=== PATIENT | female | born 1980 | race African-American/Black ===

== ENCOUNTER 2018-04-18 12:00 | Inpatient (IN) | payer BC, MEDICAID, OTHER ==
[~2018-04-18] VITALS: Ht 170.2 cm; Wt 143.3 kg
[2018-04-18] MEDS ORDERED: QUET100T PO (12:17)
[2018-04-18] MEDS ORDERED: BUPR-93 PO (12:17)
[2018-04-18 12:58] LABS: AMPHET/METH SCREEN,URINE NEGATIVE (NEGATIVE); BARBITURATE SCREEN, URINE NEGATIVE (NEGATIVE); BENZODIAZEPINES SCREEN,URINE NEGATIVE (NEGATIVE); CANNABINOID SCREEN,URINE NEGATIVE (NEGATIVE); COCAINE SCREEN,URINE NEGATIVE (NEGATIVE); METHADONE SCREEN, URINE NEGATIVE (NEGATIVE); OPIATE SCREEN,URINE NEGATIVE (NEGATIVE); PHENCYCLIDINE SCREEN,URINE NEGATIVE (NEGATIVE)
[2018-04-18 13:07] LABS: BASOPHILS % (AUTO) 0.8 % (0.0-2.0); EOSINOPHILS % (AUTO) 8.6 % (1.0-6.0); HEMATOCRIT 32.9 % (36-46); HEMOGLOBIN 10.6 g/dL (12.0-16.0); LYMPHOCYTES # (AUTO) 1.6 K/uL (1.0-4.8); MEAN CORPUSCULAR HEMOGLOBIN 23.6 pg (26.0-34.0); MEAN CORPUSCULAR HGB CONC 32.3 G/dL (31.0-37.0); MEAN CORPUSCULAR VOLUME 73 fL (80-100); MONOCYTES # (AUTO) 0.5 K/uL (0.1-1.0); NEUTROPHILS # (AUTO) 3.3 K/uL (1.8-7.7); NEUTROPHILS % (AUTO) 55.6 % (40.0-70.0); PLATELET COUNT (AUTO) 408 K/uL (150-450); RED BLOOD CELL COUNT(AUTO) 4.51 MIL/uL (4.00-5.20); RED CELL DISTRIBUTION WIDTH 17.7 % (11.5-14.5)
[2018-04-18 13:15] LABS: ANION GAP 6 mmol/L (8-16); CARBON DIOXIDE 28 mmol/L (22-29); CHLORIDE 104 mmol/L (98-107); CREATININE 0.86 mg/dL (0.60-1.30); GLOMERULAR FILTR. RATE CALC > 60 mL/min (>60); GLUCOSE,RANDOM 94 mg/dL (70-110); POTASSIUM 3.4 mmol/L (3.5-5.1); SODIUM SERUM 138 mmol/L (136-145); UREA NITROGEN, BLOOD 11 mg/dL (7-18)
[2018-04-18 13:27] LABS: ACETAMINOPHEN < 2 mcg/mL (10-30); ALANINE AMINOTRANSFERASE 25 U/L (12-78); ALKALINE PHOSPHATASE 74 U/L (46-116); ASPARTATE AMINOTRANSFERASE 17 U/L (15-37); BILIRUBIN,TOTAL 0.4 mg/dL (0.1-1.0); HCG,QUANTITATIVE 2 mIU/mL (0-6); TOTAL PROTEIN, SERUM 6.8 g/dL (6.4-8.2)
[2018-04-18] MEDS ORDERED: LORazepam 2 MG/ML VIAL ONE (13:59)
[2018-04-18] MEDS ORDERED: DiphenhydrAMINE HCL 50 MG/ML VIAL ONE (13:59)
[2018-04-18] MEDS ORDERED: LORazepam 2 MG TABLET PO PRN (14:00)
[2018-04-18] MEDS ORDERED: HALOPERIDOL 5 MG TABLET PO PRN (14:00)
[2018-04-18] MEDS ORDERED: ZOLPIDEM TARTRATE 10 MG TABLET PO PRN (14:00)
[2018-04-18] MEDS ORDERED: HALOPERIDOL LACTATE 5 MG/ML VIAL ONE (14:00)
[2018-04-18] MEDS ORDERED: ACETAMINOPHEN 325 MG TABLET PO PRN ×2 (14:15→21:15)
[2018-04-18] MEDS ORDERED: IBUPROFEN 400 MG TABLET PO PRN ×2 (14:15→21:15)
[2018-04-18] MEDS ORDERED: LORazepam 2 MG/ML VIAL IM ONE (16:45)
[2018-04-18] MEDS ORDERED: DiphenhydrAMINE HCL 50 MG/ML VIAL IM ONE (16:45)
[2018-04-18] MEDS ORDERED: HALOPERIDOL LACTATE 5 MG/ML VIAL IM ONE (16:45)
[2018-04-18] MEDS ORDERED: ALBUTEROL SULFATE HFA 90 MCG/PUFF 8 GM INHALER IH PRN (21:15)
[2018-04-18] MEDS ORDERED: DOCUSATE SODIUM 100 MG CAPSULE PO PRN (21:15)
[2018-04-18] MEDS ORDERED: MAGNESIUM HYDROXIDE SUSPENSION 30 ML UDCUP PO PRN (21:15)
[2018-04-18] MEDS ORDERED: MAG HYDROX/AL HYDROX/SIMETH ES 30 ML SUSPENSION UDCUP PO PRN (21:15)
[2018-04-18] MEDS ORDERED: NICOTINE 14 MG/24 HOUR PATCH TD PRN (21:15)
[2018-04-18] MEDS ORDERED: GuaiFENesin/D-METHORPHAN [SUGAR-FREE] 200-20MG/10 ML SYRUP UDCUP PO PRN (21:15)
[2018-04-18] MEDS ORDERED: PETROLATUM,WHITE 71 GM JELLY TP PRN (21:15)
[2018-04-18] MEDS ORDERED: LOPERAMIDE HCL 2 MG CAPSULE PO PRN (21:15)
[2018-04-18] MEDS ORDERED: ONDANSETRON HCL 4 MG TABLET PO PRN (21:15)
[2018-04-18] MEDS ORDERED: CloNIDine HCL 0.1 MG TABLET PO PRN (21:15)
[2018-04-19 08:22] VITALS: BP 144/100
[2018-04-19] MEDS: BuPROPion HCL XL 150 MG ER TABLET PO SCH (15:05)
[2018-04-19] MEDS: QUEtiapine FUMARATE 100 MG TABLET PO SCH (15:05)
[2018-04-19 20:14] VITALS: BP 138/89
[2018-04-20 08:05] VITALS: BP 133/87
[2018-04-20] MEDS: QUEtiapine FUMARATE 100 MG TABLET PO SCH (08:32)
[2018-04-20] MEDS: BuPROPion HCL XL 150 MG ER TABLET PO SCH (08:32)
[2018-04-20 16:50] VITALS: BP 140/80
[2018-04-21] MEDS: QUEtiapine FUMARATE 100 MG TABLET PO SCH (07:57)
[2018-04-21] MEDS: BuPROPion HCL XL 150 MG ER TABLET PO SCH (07:57)
[2018-04-21 10:34] VITALS: BP 140/83
== END 2018-04-21 14:52 | disposition home or self-care (01) | DRG 753 ==
LOC: EMS 12:00 → 3EI 19:20
PROVIDERS: ADMIT Psychiatry & Neurology Child & Adolescent Psychiatry; ATTEND Psychiatry & Neurology Child & Adolescent Psychiatry
DX: F31.9 Bipolar disorder, unspecified (principal); Z68.42 Body mass index [BMI] 45.0-49.9, adult; D64.9 Anemia, unspecified; E87.6 Hypokalemia; G47.00 Insomnia, unspecified; J31.0 Chronic rhinitis; J45.909 Unspecified asthma, uncomplicated; E66.9 Obesity, unspecified; F10.10 Alcohol abuse, uncomplicated; Z88.8 Allergy status to other drugs, medicaments and biological substances; Z79.899 Other long term (current) drug therapy
CPT/HCPCS: 83735; 93005; 96372; G0480; G0481; J1200; J1630; J2060

== ENCOUNTER 2018-06-06 12:18 | Inpatient (IN) | payer MEDICARE, MEDICAID ==
[~2018-06-06] VITALS: Ht 165.1 cm; Wt 136.0 kg
[~2018-06-06 12:18] MED LIST: BUPR-93 PO; QUET100T PO
[2018-06-06] MEDS ORDERED: HALOPERIDOL 5 MG TABLET PO ONE (12:30)
[2018-06-06 13:15] LABS: BASOPHILS % (AUTO) 0.5 % (0.0-2.0); EOSINOPHILS % (AUTO) 5.7 % (1.0-6.0); HEMATOCRIT 37.5 % (36-46); HEMOGLOBIN 12.1 g/dL (12.0-16.0); LYMPHOCYTES # (AUTO) 1.5 K/uL (1.0-4.8); LYMPHOCYTES % (AUTO) 23.6 % (22.0-44.0); MEAN CORPUSCULAR HEMOGLOBIN 23.9 pg (26.0-34.0); MEAN CORPUSCULAR HGB CONC 32.3 G/dL (31.0-37.0); MEAN CORPUSCULAR VOLUME 74 fL (80-100); MONOCYTES # (AUTO) 0.6 K/uL (0.1-1.0); MONOCYTES % (AUTO) 8.7 % (2.0-9.0); NEUTROPHILS # (AUTO) 3.9 K/uL (1.8-7.7); NEUTROPHILS % (AUTO) 61.5 % (40.0-70.0); PLATELET COUNT (AUTO) 469 K/uL (150-450); RED BLOOD CELL COUNT(AUTO) 5.07 MIL/uL (4.00-5.20); RED CELL DISTRIBUTION WIDTH 17.9 % (11.5-14.5)
[2018-06-06 13:23] LABS: ANION GAP 13 mmol/L (8-16); CALCIUM, TOTAL 9.6 mg/dL (8.8-10.5); CARBON DIOXIDE 24 mmol/L (22-29); CHLORIDE 105 mmol/L (98-107); GLOMERULAR FILTR. RATE CALC > 60 mL/min (>60); GLUCOSE,RANDOM 100 mg/dL (70-110); POTASSIUM 3.6 mmol/L (3.5-5.1); SODIUM SERUM 142 mmol/L (136-145); UREA NITROGEN, BLOOD 13 mg/dL (7-18)
[2018-06-06 13:29] LABS: ALANINE AMINOTRANSFERASE 43 U/L (12-78); ALBUMIN 3.4 g/dL (3.4-5.0); ALKALINE PHOSPHATASE 85 U/L (46-116); ASPARTATE AMINOTRANSFERASE 20 U/L (15-37); BILIRUBIN,TOTAL 0.5 mg/dL (0.1-1.0); TOTAL PROTEIN, SERUM 7.7 g/dL (6.4-8.2)
[2018-06-06] MEDS ORDERED: LORazepam 2 MG/ML VIAL IM ONE (14:00)
[2018-06-06] MEDS ORDERED: DiphenhydrAMINE HCL 50 MG/ML VIAL IM ONE (14:00)
[2018-06-06] MEDS ORDERED: MAG HYDROX/AL HYDROX/SIMETH ES 30 ML SUSPENSION UDCUP PO PRN (17:15)
[2018-06-06] MEDS ORDERED: ONDANSETRON HCL 4 MG TABLET PO PRN (17:15)
[2018-06-06] MEDS ORDERED: IBUPROFEN 400 MG TABLET PO PRN (17:15)
[2018-06-06] MEDS ORDERED: LOPERAMIDE HCL 2 MG CAPSULE PO PRN (17:15)
[2018-06-06] MEDS ORDERED: GuaiFENesin/D-METHORPHAN [SUGAR-FREE] 200-20MG/10 ML SYRUP UDCUP PO PRN (17:15)
[2018-06-06] MEDS ORDERED: MAGNESIUM HYDROXIDE SUSPENSION 30 ML UDCUP PO PRN (17:15)
[2018-06-06] MEDS ORDERED: CloNIDine HCL 0.1 MG TABLET PO PRN (17:15)
[2018-06-06] MEDS ORDERED: DOCUSATE SODIUM 100 MG CAPSULE PO PRN (17:15)
[2018-06-06] MEDS ORDERED: ACETAMINOPHEN 325 MG TABLET PO PRN (17:15)
[2018-06-06] MEDS ORDERED: ALBUTEROL SULFATE HFA 90 MCG/PUFF 8 GM INHALER IH PRN (17:15)
[2018-06-06] MEDS ORDERED: PETROLATUM,WHITE 28 GM JELLY TP PRN (17:15)
[2018-06-06] MEDS: BuPROPion HCL XL 150 MG ER TABLET PO SCH (17:35)
[2018-06-06 17:39] VITALS: BP 131/83
[2018-06-06] MEDS ORDERED: PNEUMOCOCCAL VACCINE POLYVALENT 0.5 ML VIAL [PPSV23] IM ONE (18:00)
[2018-06-06] MEDS ORDERED: BuPROPion HCL XL 150 MG ER TABLET PO SCH (21:00)
[2018-06-06] MEDS: ZOLPIDEM TARTRATE 10 MG TABLET PO PRN (21:08)
[2018-06-07 06:11] LABS: BASOPHILS % (AUTO) 0.5 % (0.0-2.0); EOSINOPHILS % (AUTO) 7.5 % (1.0-6.0); HEMATOCRIT 35.2 % (36-46); HEMOGLOBIN 11.6 g/dL (12.0-16.0); LYMPHOCYTES # (AUTO) 1.7 K/uL (1.0-4.8); MEAN CORPUSCULAR HEMOGLOBIN 23.9 pg (26.0-34.0); MEAN CORPUSCULAR HGB CONC 32.9 G/dL (31.0-37.0); MEAN CORPUSCULAR VOLUME 73 fL (80-100); MONOCYTES # (AUTO) 0.5 K/uL (0.1-1.0); MONOCYTES % (AUTO) 8.5 % (2.0-9.0); NEUTROPHILS # (AUTO) 2.9 K/uL (1.8-7.7); NEUTROPHILS % (AUTO) 52.5 % (40.0-70.0); PLATELET COUNT (AUTO) 422 K/uL (150-450); RED BLOOD CELL COUNT(AUTO) 4.83 MIL/uL (4.00-5.20); RED CELL DISTRIBUTION WIDTH 18.3 % (11.5-14.5)
[2018-06-07 06:27] LABS: ALANINE AMINOTRANSFERASE 37 U/L (12-78); ALKALINE PHOSPHATASE 76 U/L (46-116); ANION GAP 11 mmol/L (8-16); ASPARTATE AMINOTRANSFERASE 17 U/L (15-37); BILIRUBIN,TOTAL 0.5 mg/dL (0.1-1.0); CALCIUM, TOTAL 9.1 mg/dL (8.8-10.5); CARBON DIOXIDE 25 mmol/L (22-29); CHLORIDE 105 mmol/L (98-107); CHOL/HDL RATIO 4.2 (3.9-5.7); CHOLESTEROL 158 mg/dL (131-200); CREATININE 1.09 mg/dL (0.60-1.30); GLOMERULAR FILTR. RATE CALC > 60 mL/min (>60); GLUCOSE,RANDOM 93 mg/dL (70-110); HDL CHOLESTEROL 38 mg/dL (40-60); LDL CHOL (CALC.) 108 mg/dL (0-130); POTASSIUM 3.6 mmol/L (3.5-5.1); SODIUM SERUM 141 mmol/L (136-145); THYROID STIMULATING HORMONE 2.01 uIU/mL (0.36-3.74); TOTAL PROTEIN, SERUM 6.8 g/dL (6.4-8.2); TRIGLYCERIDES 59 mg/dL (15-150); UREA NITROGEN, BLOOD 14 mg/dL (7-18)
[2018-06-07 06:32] LABS: HEMOGLOBIN A1C 6.1 % (4.5-6.2)
[2018-06-07] MEDS: BuPROPion HCL XL 150 MG ER TABLET PO SCH (08:06)
[2018-06-07] MEDS: LORazepam 2 MG TABLET PO PRN (08:17)
[2018-06-07] MEDS: HALOPERIDOL 5 MG TABLET PO PRN (08:18)
[2018-06-07] MEDS ORDERED: QUEtiapine FUMARATE 100 MG TABLET PO SCH (09:00)
[2018-06-07 16:36] VITALS: BP 115/83
[2018-06-07] MEDS: ZOLPIDEM TARTRATE 10 MG TABLET PO PRN (22:48)
[2018-06-08] MEDS: LORazepam 2 MG TABLET PO PRN ×2 (04:18→14:06)
[2018-06-08] MEDS: BuPROPion HCL XL 150 MG ER TABLET PO SCH (08:30)
[2018-06-08 13:50] VITALS: BP 132/93
[2018-06-08 17:57] VITALS: BP 128/89
[2018-06-08] MEDS: HALOPERIDOL 5 MG TABLET PO PRN (18:06)
[2018-06-08] MEDS ORDERED: QUEtiapine FUMARATE 100 MG TABLET PO SCH (21:00)
[2018-06-09] VITALS: BP 129/88
[2018-06-09] MEDS: ZOLPIDEM TARTRATE 10 MG TABLET PO PRN (00:01)
[2018-06-09 08:00] VITALS: BP 138/71
[2018-06-09] MEDS: BuPROPion HCL XL 150 MG ER TABLET PO SCH (08:23)
[2018-06-09] MEDS: LORazepam 2 MG TABLET PO PRN (10:08)
[2018-06-09] MEDS: HALOPERIDOL 5 MG TABLET PO PRN (10:08)
== END 2018-06-09 14:10 | disposition home or self-care (01) | DRG 885 ==
LOC: EMS 12:18 → 3EI 15:49
PROVIDERS: ADMIT Psychiatry & Neurology Psychiatry; ATTEND Psychiatry & Neurology Psychiatry
DX: F31.9 Bipolar disorder, unspecified (principal); R45.851 Suicidal ideations; Z68.42 Body mass index [BMI] 45.0-49.9, adult; F41.9 Anxiety disorder, unspecified; F42.9 Obsessive-compulsive disorder, unspecified; F19.10 Other psychoactive substance abuse, uncomplicated; J45.909 Unspecified asthma, uncomplicated; E66.01 Morbid (severe) obesity due to excess calories; D64.9 Anemia, unspecified; Z88.8 Allergy status to other drugs, medicaments and biological substances; Z79.899 Other long term (current) drug therapy; Z71.51 Drug abuse counseling and surveillance of drug abuser
CPT/HCPCS: 83036; 84443; 96372; G0480; J1200; J2060

== ENCOUNTER 2018-07-10 20:45 | Emergency (ER) | payer MEDICARE, OTHER ==
[~2018-07-10] VITALS: Ht 165.1 cm; Wt 136.4 kg
[2018-07-10] MEDS ORDERED: HALOPERIDOL LACTATE 5 MG/ML VIAL IM ONE (21:15)
[2018-07-10] MEDS ORDERED: DiphenhydrAMINE HCL 50 MG/ML VIAL IM ONE (21:15)
[2018-07-10] MEDS ORDERED: LORazepam 2 MG/ML VIAL IM ONE (21:15)
[2018-07-10] MEDS ORDERED: LITH600 PO (21:31)
[2018-07-10] MEDS ORDERED: DIPH50CA35 PO (21:31)
[2018-07-10] MEDS ORDERED: OMEP20 PO (21:31)
[2018-07-10] MEDS ORDERED: DOCU250C91 PO (21:31)
[2018-07-11 00:56] VITALS: BP 136/81
== END 2018-07-11 01:57 | disposition home or self-care (01) ==
LOC: EMS 20:48
DX: F41.9 Anxiety disorder, unspecified (principal); F31.9 Bipolar disorder, unspecified; F25.9 Schizoaffective disorder, unspecified; Z88.8 Allergy status to other drugs, medicaments and biological substances
CPT/HCPCS: 96372; 99285; J1200; J1630; J2060

== ENCOUNTER 2018-07-15 16:08 | Inpatient (IN) | payer MEDICARE, MEDICAID ==
[~2018-07-15] VITALS: Ht 165.1 cm; Wt 139.7 kg
[~2018-07-15 16:08] MED LIST changes: +DIPH50CA35 PO; +DOCU250C91 PO; +LITH600 PO; +OMEP20 PO
[2018-07-15] MEDS ORDERED: ZOLPIDEM TARTRATE 10 MG TABLET PO PRN (16:30)
[2018-07-15] MEDS ORDERED: HALOPERIDOL 5 MG TABLET ONE (17:15)
[2018-07-15] MEDS ORDERED: LORazepam 2 MG TABLET ONE (17:15)
[2018-07-15 17:20] VITALS: BP 126/95
[2018-07-15] MEDS ORDERED: PNEUMOCOCCAL VACCINE POLYVALENT 0.5 ML VIAL [PPSV23] IM ONE (17:30)
[2018-07-15] MEDS ORDERED: NICOTINE 14 MG/24 HOUR PATCH TD PRN (17:45)
[2018-07-15] MEDS ORDERED: PETROLATUM,WHITE 28 GM JELLY TP PRN (17:45)
[2018-07-15] MEDS ORDERED: DOCUSATE SODIUM 100 MG CAPSULE PO PRN (17:45)
[2018-07-15] MEDS ORDERED: MAGNESIUM HYDROXIDE SUSPENSION 30 ML UDCUP PO PRN (17:45)
[2018-07-15] MEDS ORDERED: MAG HYDROX/AL HYDROX/SIMETH ES 30 ML SUSPENSION UDCUP PO PRN (17:45)
[2018-07-15] MEDS ORDERED: ALBUTEROL SULFATE HFA 90 MCG/PUFF 8 GM INHALER IH PRN (17:45)
[2018-07-15] MEDS ORDERED: ONDANSETRON HCL 4 MG TABLET PO PRN (17:45)
[2018-07-15] MEDS ORDERED: LOPERAMIDE HCL 2 MG CAPSULE PO PRN (17:45)
[2018-07-15] MEDS ORDERED: CloNIDine HCL 0.1 MG TABLET PO PRN (17:45)
[2018-07-15] MEDS ORDERED: GuaiFENesin/D-METHORPHAN [SUGAR-FREE] 200-20MG/10 ML SYRUP UDCUP PO PRN (17:45)
[2018-07-15] MEDS ORDERED: ACETAMINOPHEN 325 MG TABLET PO PRN (17:45)
[2018-07-15] MEDS: HALOPERIDOL 5 MG TABLET PO PRN (18:42)
[2018-07-15] MEDS: LORazepam 2 MG TABLET PO PRN (18:42)
[2018-07-16] MEDS: LORazepam 2 MG TABLET PO PRN ×2 (04:42→17:22)
[2018-07-16 06:20] VITALS: BP 141/103
[2018-07-16 08:16] VITALS: BP 141/98
[2018-07-16 08:28] LABS: EOSINOPHILS % (AUTO) 11.8 % (1.0-6.0); HEMATOCRIT 35.4 % (36-46); HEMOGLOBIN 11.3 g/dL (12.0-16.0); LYMPHOCYTES # (AUTO) 1.8 K/uL (1.0-4.8); LYMPHOCYTES % (AUTO) 24.2 % (22.0-44.0); MEAN CORPUSCULAR HEMOGLOBIN 23.7 pg (26.0-34.0); MEAN CORPUSCULAR VOLUME 74 fL (80-100); MONOCYTES # (AUTO) 0.4 K/uL (0.1-1.0); MONOCYTES % (AUTO) 4.8 % (2.0-9.0); NEUTROPHILS # (AUTO) 4.3 K/uL (1.8-7.7); NEUTROPHILS % (AUTO) 58.2 % (40.0-70.0); PLATELET COUNT (AUTO) 575 K/uL (150-450); RED BLOOD CELL COUNT(AUTO) 4.77 MIL/uL (4.00-5.20); RED CELL DISTRIBUTION WIDTH 18.8 % (11.5-14.5)
[2018-07-16 08:42] LABS: HEMOGLOBIN A1C 5.6 % (4.5-6.2)
[2018-07-16 08:58] LABS: ALANINE AMINOTRANSFERASE 20 U/L (12-78); ALBUMIN 3.1 g/dL (3.4-5.0); ALKALINE PHOSPHATASE 81 U/L (46-116); ANION GAP 9 mmol/L (8-16); ASPARTATE AMINOTRANSFERASE 20 U/L (15-37); BILIRUBIN,TOTAL 0.2 mg/dL (0.1-1.0); CARBON DIOXIDE 25 mmol/L (22-29); CHLORIDE 106 mmol/L (98-107); CHOL/HDL RATIO 3.5 (3.9-5.7); CHOLESTEROL 157 mg/dL (131-200); CREATININE 0.96 mg/dL (0.60-1.30); FREE T4 (FREE THYROXINE) 0.75 ng/dL (0.76-1.46); GLOMERULAR FILTR. RATE CALC > 60 mL/min (>60); GLUCOSE,RANDOM 124 mg/dL (70-110); HCG,QUANTITATIVE 1 mIU/mL (0-6); HDL CHOLESTEROL 45 mg/dL (40-60); LDL CHOL (CALC.) 93 mg/dL (0-130); POTASSIUM 4.4 mmol/L (3.5-5.1); SODIUM SERUM 140 mmol/L (136-145); TOTAL PROTEIN, SERUM 7.5 g/dL (6.4-8.2); TRIGLYCERIDES 97 mg/dL (15-150); UREA NITROGEN, BLOOD 11 mg/dL (7-18)
[2018-07-16] MEDS ORDERED: QUEtiapine FUMARATE 100 MG TABLET PO SCH (11:15)
[2018-07-16] MEDS: BuPROPion HCL XL 150 MG ER TABLET PO SCH (11:53)
[2018-07-16 16:17] VITALS: BP 133/94
[2018-07-16] MEDS: IBUPROFEN 400 MG TABLET PO PRN (19:38)
[2018-07-16] MEDS: QUEtiapine FUMARATE 100 MG TABLET PO SCH (20:06)
[2018-07-16] MEDS: DiphenhydrAMINE HCL 25 MG CAPSULE PO SCH (20:06)
[2018-07-17 00:32] VITALS: BP 144/99
[2018-07-17] MEDS: IBUPROFEN 400 MG TABLET PO PRN (07:19)
[2018-07-17 08:08] VITALS: BP 135/81
[2018-07-17] MEDS: BuPROPion HCL XL 150 MG ER TABLET PO SCH (08:33)
[2018-07-17] MEDS: LORazepam 2 MG TABLET PO PRN ×3 (08:33→19:45)
[2018-07-17] MEDS: HALOPERIDOL 5 MG TABLET PO PRN ×2 (15:45→19:45)
[2018-07-17] MEDS: QUEtiapine FUMARATE 100 MG TABLET PO SCH (20:25)
[2018-07-17] MEDS: DiphenhydrAMINE HCL 25 MG CAPSULE PO SCH (20:25)
[2018-07-18 01:29] VITALS: BP 138/91
[2018-07-18 08:13] VITALS: BP 151/98
[2018-07-18] MEDS: BuPROPion HCL XL 150 MG ER TABLET PO SCH (08:18)
[2018-07-18] MEDS ORDERED: QUET100T33 PO (09:32)
[2018-07-18] MEDS ORDERED: BUPR-47 PO (09:32)
[2018-07-18] MEDS: HALOPERIDOL 5 MG TABLET PO PRN (10:09)
[2018-07-18] MEDS: LORazepam 2 MG TABLET PO PRN (10:09)
[2018-07-18] MEDS ORDERED: QUET100T PO (12:15)
== END 2018-07-18 16:15 | disposition home or self-care (01) | DRG 885 ==
LOC: B2S 16:34 → B3A 18:09
PROVIDERS: ADMIT Psychiatry & Neurology Psychiatry; ATTEND Psychiatry & Neurology Psychiatry
DX: F25.0 Schizoaffective disorder, bipolar type (principal); Z68.43 Body mass index [BMI] 50.0-59.9, adult; D64.9 Anemia, unspecified; E66.01 Morbid (severe) obesity due to excess calories; J45.909 Unspecified asthma, uncomplicated; F19.10 Other psychoactive substance abuse, uncomplicated; Z79.899 Other long term (current) drug therapy
CPT/HCPCS: 83036; 84439; 84443

== ENCOUNTER 2018-08-11 18:02 | Emergency (ER) | payer MEDICARE, MEDICAID ==
[~2018-08-11] VITALS: Ht 165.1 cm; Wt 154.6 kg
[~2018-08-11 18:02] MED LIST changes: +BUPR-47 PO; -DIPH50CA35 PO; -DOCU250C91 PO; -LITH600 PO; -OMEP20 PO; +QUET100T33 PO
[2018-08-11 18:30] VITALS: BP 130/90
[2018-08-11] MEDS ORDERED: QUET200T PO (18:41)
== END 2018-08-11 22:15 | disposition left against medical advice (07) ==
LOC: EMS 18:05
DX: R44.0 Auditory hallucinations (principal); Z53.21 Procedure and treatment not carried out due to patient leaving prior to being seen by health care provider

== ENCOUNTER 2018-08-16 14:02 | Inpatient (IN) | payer MEDICARE, MEDICAID ==
[~2018-08-16] VITALS: Ht 165.1 cm; Wt 138.6 kg
[~2018-08-16 14:02] MED LIST changes: -BUPR-47 PO; -QUET100T PO; -QUET100T33 PO; +QUET200T PO
[2018-08-16 14:58] LABS: BASOPHILS % (AUTO) 1.8 % (0.0-2.0); EOSINOPHILS % (AUTO) 9.5 % (1.0-6.0); HEMATOCRIT 36.2 % (36-46); HEMOGLOBIN 11.7 g/dL (12.0-16.0); LYMPHOCYTES # (AUTO) 1.8 K/uL (1.0-4.8); LYMPHOCYTES % (AUTO) 28.5 % (22.0-44.0); MEAN CORPUSCULAR HEMOGLOBIN 23.8 pg (26.0-34.0); MEAN CORPUSCULAR HGB CONC 32.3 G/dL (31.0-37.0); MEAN CORPUSCULAR VOLUME 74 fL (80-100); MONOCYTES # (AUTO) 0.6 K/uL (0.1-1.0); MONOCYTES % (AUTO) 9.5 % (2.0-9.0); NEUTROPHILS # (AUTO) 3.3 K/uL (1.8-7.7); NEUTROPHILS % (AUTO) 50.7 % (40.0-70.0); PLATELET COUNT (AUTO) 511 K/uL (150-450); RED BLOOD CELL COUNT(AUTO) 4.91 MIL/uL (4.00-5.20); RED CELL DISTRIBUTION WIDTH 17.8 % (11.5-14.5)
[2018-08-16 15:07] LABS: ANION GAP 11 mmol/L (8-16); CALCIUM, TOTAL 9.3 mg/dL (8.8-10.5); CARBON DIOXIDE 28 mmol/L (22-29); CHLORIDE 105 mmol/L (98-107); CREATININE 1.19 mg/dL (0.60-1.30); GLOMERULAR FILTR. RATE CALC > 60 mL/min (>60); GLUCOSE,RANDOM 82 mg/dL (70-110); POTASSIUM 3.6 mmol/L (3.5-5.1); SODIUM SERUM 144 mmol/L (136-145); UREA NITROGEN, BLOOD 14 mg/dL (7-18)
[2018-08-16 15:14] LABS: ALANINE AMINOTRANSFERASE 30 U/L (12-78); ALBUMIN 3.5 g/dL (3.4-5.0); ALKALINE PHOSPHATASE 88 U/L (46-116); ASPARTATE AMINOTRANSFERASE 22 U/L (15-37); BILIRUBIN,TOTAL 0.4 mg/dL (0.1-1.0); TOTAL PROTEIN, SERUM 7.8 g/dL (6.4-8.2)
[2018-08-16] MEDS ORDERED: DiphenhydrAMINE HCL 25 MG CAPSULE PO ONE (15:45)
[2018-08-16 16:06] LABS: HCG,QUANTITATIVE 1 mIU/mL (0-6)
[2018-08-16] MEDS ORDERED: CloNIDine HCL 0.1 MG TABLET PO PRN (19:30)
[2018-08-16] MEDS ORDERED: MAG HYDROX/AL HYDROX/SIMETH ES 30 ML SUSPENSION UDCUP PO PRN (19:30)
[2018-08-16] MEDS ORDERED: ONDANSETRON HCL 4 MG TABLET PO PRN (19:30)
[2018-08-16] MEDS ORDERED: LOPERAMIDE HCL 2 MG CAPSULE PO PRN (19:30)
[2018-08-16] MEDS ORDERED: ALBUTEROL SULFATE HFA 90 MCG/PUFF 8 GM INHALER IH PRN (19:30)
[2018-08-16] MEDS ORDERED: DOCUSATE SODIUM 100 MG CAPSULE PO PRN (19:30)
[2018-08-16] MEDS ORDERED: PETROLATUM,WHITE 28 GM JELLY TP PRN (19:30)
[2018-08-16] MEDS ORDERED: ACETAMINOPHEN 325 MG TABLET PO PRN (19:30)
[2018-08-16] MEDS ORDERED: MAGNESIUM HYDROXIDE SUSPENSION 30 ML UDCUP PO PRN (19:30)
[2018-08-16] MEDS ORDERED: GuaiFENesin/D-METHORPHAN [SUGAR-FREE] 200-20MG/10 ML SYRUP UDCUP PO PRN (19:30)
[2018-08-16] MEDS ORDERED: NICOTINE 14 MG/24 HOUR PATCH TD PRN (19:30)
[2018-08-16 21:11] VITALS: BP 122/81
[2018-08-16] MEDS: ZOLPIDEM TARTRATE 10 MG TABLET PO PRN (21:52)
[2018-08-17] MEDS ORDERED: PNEUMOCOCCAL VACCINE POLYVALENT 0.5 ML VIAL [PPSV23] IM ONE (03:15)
[2018-08-17 04:18] VITALS: BP 134/65
[2018-08-17] MEDS: LORazepam 2 MG TABLET PO PRN ×3 (04:21→14:30)
[2018-08-17 06:22] LABS: BASOPHILS % (AUTO) 0.9 % (0.0-2.0); EOSINOPHILS % (AUTO) 8.8 % (1.0-6.0); HEMATOCRIT 35.2 % (36-46); HEMOGLOBIN 11.5 g/dL (12.0-16.0); LYMPHOCYTES # (AUTO) 1.7 K/uL (1.0-4.8); LYMPHOCYTES % (AUTO) 34.6 % (22.0-44.0); MEAN CORPUSCULAR HEMOGLOBIN 24.4 pg (26.0-34.0); MEAN CORPUSCULAR HGB CONC 32.6 G/dL (31.0-37.0); MEAN CORPUSCULAR VOLUME 75 fL (80-100); MONOCYTES # (AUTO) 0.4 K/uL (0.1-1.0); MONOCYTES % (AUTO) 8.4 % (2.0-9.0); NEUTROPHILS # (AUTO) 2.3 K/uL (1.8-7.7); NEUTROPHILS % (AUTO) 47.3 % (40.0-70.0); PLATELET COUNT (AUTO) 441 K/uL (150-450); RED BLOOD CELL COUNT(AUTO) 4.69 MIL/uL (4.00-5.20); RED CELL DISTRIBUTION WIDTH 17.7 % (11.5-14.5)
[2018-08-17 06:56] LABS: HEMOGLOBIN A1C 5.6 % (4.5-6.2)
[2018-08-17 07:46] LABS: ALANINE AMINOTRANSFERASE 24 U/L (12-78); ALBUMIN 3.3 g/dL (3.4-5.0); ALKALINE PHOSPHATASE 82 U/L (46-116); ANION GAP 8 mmol/L (8-16); ASPARTATE AMINOTRANSFERASE 17 U/L (15-37); BILIRUBIN,TOTAL 0.3 mg/dL (0.1-1.0); CALCIUM, TOTAL 8.7 mg/dL (8.8-10.5); CARBON DIOXIDE 28 mmol/L (22-29); CHLORIDE 106 mmol/L (98-107); CHOL/HDL RATIO 4.4 (3.9-5.7); CHOLESTEROL 196 mg/dL (131-200); CREATININE 1.05 mg/dL (0.60-1.30); GLOMERULAR FILTR. RATE CALC > 60 mL/min (>60); GLUCOSE,RANDOM 81 mg/dL (70-110); HDL CHOLESTEROL 45 mg/dL (40-60); LDL CHOL (CALC.) 139 mg/dL (0-130); POTASSIUM 3.6 mmol/L (3.5-5.1); SODIUM SERUM 142 mmol/L (136-145); THYROID STIMULATING HORMONE 1.94 uIU/mL (0.36-3.74); TOTAL PROTEIN, SERUM 6.7 g/dL (6.4-8.2); TRIGLYCERIDES 58 mg/dL (15-150); UREA NITROGEN, BLOOD 11 mg/dL (7-18)
[2018-08-17 08:44] VITALS: BP 127/88
[2018-08-17] MEDS: ChlorproMAZINE HCL 50 MG TABLET PO SCH (20:37)
[2018-08-17] MEDS: QUEtiapine FUMARATE 200 MG TABLET PO SCH (20:37)
[2018-08-18] MEDS: ZOLPIDEM TARTRATE 10 MG TABLET PO PRN ×2 (02:44→23:54)
[2018-08-18 03:56] VITALS: BP 142/76
[2018-08-18] MEDS: BuPROPion HCL XL 150 MG ER TABLET PO SCH (08:42)
[2018-08-18] MEDS: LORazepam 2 MG TABLET PO PRN ×3 (09:04→19:27)
[2018-08-18 11:13] VITALS: BP 129/94
[2018-08-18 13:50] VITALS: BP 115/89
[2018-08-18] MEDS: IBUPROFEN 400 MG TABLET PO PRN (13:53)
[2018-08-18] MEDS: HALOPERIDOL 5 MG TABLET PO PRN (19:27)
[2018-08-18] MEDS: ChlorproMAZINE HCL 50 MG TABLET PO SCH (22:09)
[2018-08-18] MEDS: QUEtiapine FUMARATE 200 MG TABLET PO SCH (22:09)
[2018-08-19] MEDS: BuPROPion HCL XL 150 MG ER TABLET PO SCH (08:48)
[2018-08-19 10:51] VITALS: BP 131/83
[2018-08-19] MEDS: HALOPERIDOL 5 MG TABLET PO PRN ×2 (14:50→20:27)
[2018-08-19] MEDS: LORazepam 2 MG TABLET PO PRN ×2 (14:50→20:27)
[2018-08-19] MEDS: FERROUS SULFATE 325 MG EC TABLET PO SCH (16:38)
[2018-08-19 17:26] VITALS: BP 140/99
[2018-08-19] MEDS: QUEtiapine FUMARATE 200 MG TABLET PO SCH (21:09)
[2018-08-19] MEDS: ChlorproMAZINE HCL 50 MG TABLET PO SCH (21:09)
[2018-08-19] MEDS: ZOLPIDEM TARTRATE 10 MG TABLET PO PRN (21:09)
[2018-08-20] MEDS: FERROUS SULFATE 325 MG EC TABLET PO SCH ×2 (06:28→16:20)
[2018-08-20 06:45] VITALS: BP 134/81
[2018-08-20] MEDS: IBUPROFEN 400 MG TABLET PO PRN (06:45)
[2018-08-20 08:01] VITALS: BP 125/86
[2018-08-20] MEDS: BuPROPion HCL XL 150 MG ER TABLET PO SCH (09:11)
[2018-08-20] MEDS: LORazepam 2 MG TABLET PO PRN ×2 (09:49→18:08)
[2018-08-20] MEDS: HALOPERIDOL 5 MG TABLET PO PRN (09:50)
[2018-08-20 19:19] VITALS: BP 130/92
[2018-08-20] MEDS: ChlorproMAZINE HCL 50 MG TABLET PO SCH (20:58)
[2018-08-20] MEDS: ZOLPIDEM TARTRATE 10 MG TABLET PO PRN (20:58)
[2018-08-20] MEDS: QUEtiapine FUMARATE 200 MG TABLET PO SCH (20:58)
[2018-08-21] MEDS: LORazepam 2 MG TABLET PO PRN ×3 (01:10→22:29)
[2018-08-21] MEDS: FERROUS SULFATE 325 MG EC TABLET PO SCH ×2 (06:31→17:03)
[2018-08-21 08:00] VITALS: BP 134/98
[2018-08-21] MEDS: BuPROPion HCL XL 150 MG ER TABLET PO SCH (08:48)
[2018-08-21] MEDS ORDERED: FERR-89 PO (12:39)
[2018-08-21] MEDS ORDERED: CHLO50 PO (12:39)
[2018-08-21] MEDS: QUEtiapine FUMARATE 200 MG TABLET PO SCH (20:31)
[2018-08-21] MEDS: ChlorproMAZINE HCL 50 MG TABLET PO SCH (20:31)
[2018-08-21] MEDS: ZOLPIDEM TARTRATE 10 MG TABLET PO PRN (20:34)
[2018-08-21 23:06] VITALS: BP 131/104
[2018-08-22] MEDS: HALOPERIDOL 5 MG TABLET PO PRN (00:50)
[2018-08-22] MEDS: FERROUS SULFATE 325 MG EC TABLET PO SCH ×2 (06:57→16:14)
[2018-08-22 08:00] VITALS: BP 127/99
[2018-08-22] MEDS: BuPROPion HCL XL 150 MG ER TABLET PO SCH (08:34)
[2018-08-22] MEDS: ChlorproMAZINE HCL 50 MG TABLET PO SCH (20:26)
[2018-08-22] MEDS: QUEtiapine FUMARATE 200 MG TABLET PO SCH (20:26)
[2018-08-22 21:47] VITALS: BP 118/92
[2018-08-22] MEDS: ZOLPIDEM TARTRATE 10 MG TABLET PO PRN (22:29)
[2018-08-23] MEDS: LORazepam 2 MG TABLET PO PRN ×3 (00:03→17:59)
[2018-08-23] MEDS: HALOPERIDOL 5 MG TABLET PO PRN ×3 (02:15→17:59)
[2018-08-23 02:43] VITALS: BP 129/92
[2018-08-23] MEDS: FERROUS SULFATE 325 MG EC TABLET PO SCH ×2 (06:48→16:48)
[2018-08-23 08:10] VITALS: BP 105/74
[2018-08-23] MEDS: BuPROPion HCL XL 150 MG ER TABLET PO SCH (08:18)
[2018-08-23 16:59] VITALS: BP 131/76
[2018-08-23] MEDS: ChlorproMAZINE HCL 50 MG TABLET PO SCH ×2 (20:43→21:25)
[2018-08-23] MEDS: QUEtiapine FUMARATE 200 MG TABLET PO SCH ×2 (20:43→21:25)
[2018-08-24] MEDS: FERROUS SULFATE 325 MG EC TABLET PO SCH (06:48)
[2018-08-24] MEDS: BuPROPion HCL XL 150 MG ER TABLET PO SCH (07:24)
[2018-08-24] MEDS: LORazepam 2 MG TABLET PO PRN (07:28)
[2018-08-24] MEDS: HALOPERIDOL 5 MG TABLET PO PRN (07:28)
[2018-08-24 08:34] VITALS: BP 103/73
== END 2018-08-24 16:15 | disposition home or self-care (01) | DRG 885 ==
LOC: EMS 14:04 → 3EC 17:06
PROVIDERS: ADMIT Psychiatry & Neurology Psychiatry; ATTEND Psychiatry & Neurology Psychiatry
DX: F25.0 Schizoaffective disorder, bipolar type (principal); R45.851 Suicidal ideations; F41.9 Anxiety disorder, unspecified; F42.9 Obsessive-compulsive disorder, unspecified; J45.909 Unspecified asthma, uncomplicated; M25.531 Pain in right wrist; R00.0 Tachycardia, unspecified; E78.5 Hyperlipidemia, unspecified; D64.9 Anemia, unspecified; F32.9 Major depressive disorder, single episode, unspecified; Z88.8 Allergy status to other drugs, medicaments and biological substances; Z79.899 Other long term (current) drug therapy
CPT/HCPCS: 82728; 83036; 83540; 83550; 84443; 87081; G0480

== ENCOUNTER 2018-09-08 04:41 | Inpatient (IN) | payer MEDICARE, MEDICAID ==
[~2018-09-08] VITALS: Ht 165.1 cm; Wt 130.8 kg
[~2018-09-08 04:41] MED LIST changes: +CHLO50 PO; +FERR-89 PO
[2018-09-08] MEDS ORDERED: PALI78DI IM (04:46)
[2018-09-08] MEDS ORDERED: PALI234D IM (05:00)
[2018-09-08 05:16] LABS: BASOPHILS % (AUTO) 0.7 % (0.0-2.0); EOSINOPHILS % (AUTO) 1.6 % (1.0-6.0); HEMATOCRIT 34.9 % (36-46); HEMOGLOBIN 11.2 g/dL (12.0-16.0); LYMPHOCYTES # (AUTO) 1.8 K/uL (1.0-4.8); MEAN CORPUSCULAR HEMOGLOBIN 23.7 pg (26.0-34.0); MEAN CORPUSCULAR VOLUME 74 fL (80-100); MONOCYTES # (AUTO) 0.6 K/uL (0.1-1.0); MONOCYTES % (AUTO) 9.2 % (2.0-9.0); NEUTROPHILS # (AUTO) 4.3 K/uL (1.8-7.7); NEUTROPHILS % (AUTO) 62.5 % (40.0-70.0); PLATELET COUNT (AUTO) 457 K/uL (150-450); RED BLOOD CELL COUNT(AUTO) 4.71 MIL/uL (4.00-5.20); RED CELL DISTRIBUTION WIDTH 17.4 % (11.5-14.5)
[2018-09-08 05:26] LABS: ANION GAP 13 mmol/L (8-16); CALCIUM, TOTAL 9.1 mg/dL (8.8-10.5); CARBON DIOXIDE 24 mmol/L (22-29); CHLORIDE 104 mmol/L (98-107); CREATININE 1.14 mg/dL (0.60-1.30); GLOMERULAR FILTR. RATE CALC > 60 mL/min (>60); GLUCOSE,RANDOM 98 mg/dL (70-110); POTASSIUM 3.3 mmol/L (3.5-5.1); SODIUM SERUM 141 mmol/L (136-145); UREA NITROGEN, BLOOD 17 mg/dL (7-18)
[2018-09-08 05:43] LABS: ALANINE AMINOTRANSFERASE 25 U/L (12-78); ALBUMIN 3.3 g/dL (3.4-5.0); ALKALINE PHOSPHATASE 86 U/L (46-116); ASPARTATE AMINOTRANSFERASE 15 U/L (15-37); BILIRUBIN,TOTAL 0.6 mg/dL (0.1-1.0); HCG,QUANTITATIVE 1 mIU/mL (0-6); TOTAL PROTEIN, SERUM 7.5 g/dL (6.4-8.2)
[2018-09-08] MEDS ORDERED: HALOPERIDOL LACTATE 5 MG/ML VIAL IM ONE (06:45)
[2018-09-08] MEDS ORDERED: LORazepam 2 MG/ML VIAL IM ONE (06:45)
[2018-09-08] MEDS ORDERED: DiphenhydrAMINE HCL 50 MG/ML VIAL IM ONE (06:45)
[2018-09-08 10:45] VITALS: BP 93/58
[2018-09-08] MEDS: LORazepam 2 MG TABLET PO PRN (11:34)
[2018-09-08] MEDS: BuPROPion HCL XL 150 MG ER TABLET PO SCH (12:30)
[2018-09-08] MEDS ORDERED: NICOTINE 14 MG/24 HOUR PATCH TD PRN (15:15)
[2018-09-08] MEDS ORDERED: MAGNESIUM HYDROXIDE SUSPENSION 30 ML UDCUP PO PRN (15:15)
[2018-09-08] MEDS ORDERED: PETROLATUM,WHITE 28 GM JELLY TP PRN (15:15)
[2018-09-08] MEDS ORDERED: GuaiFENesin/D-METHORPHAN [SUGAR-FREE] 200-20MG/10 ML SYRUP UDCUP PO PRN (15:15)
[2018-09-08] MEDS ORDERED: ALBUTEROL SULFATE HFA 90 MCG/PUFF 8 GM INHALER IH PRN (15:15)
[2018-09-08] MEDS ORDERED: ONDANSETRON HCL 4 MG TABLET PO PRN (15:15)
[2018-09-08] MEDS ORDERED: DOCUSATE SODIUM 100 MG CAPSULE PO PRN (15:15)
[2018-09-08] MEDS ORDERED: ACETAMINOPHEN 325 MG TABLET PO PRN (15:15)
[2018-09-08] MEDS ORDERED: CloNIDine HCL 0.1 MG TABLET PO PRN (15:15)
[2018-09-08] MEDS ORDERED: LOPERAMIDE HCL 2 MG CAPSULE PO PRN (15:15)
[2018-09-08] MEDS ORDERED: MAG HYDROX/AL HYDROX/SIMETH ES 30 ML SUSPENSION UDCUP PO PRN (15:15)
[2018-09-08] MEDS ORDERED: POTASSIUM CHLORIDE 20 MEQ ER TABLET PO ONE (16:15)
[2018-09-08 17:02] VITALS: BP 117/75
[2018-09-08] MEDS ORDERED: PNEUMOCOCCAL VACCINE POLYVALENT 0.5 ML VIAL [PPSV23] IM ONE (18:00)
[2018-09-09 00:16] VITALS: BP 142/90
[2018-09-09] MEDS: LORazepam 2 MG TABLET PO PRN ×2 (04:04→19:28)
[2018-09-09 07:55] LABS: BASOPHILS % (AUTO) 0.4 % (0.0-2.0); EOSINOPHILS % (AUTO) 2.2 % (1.0-6.0); HEMATOCRIT 35.1 % (36-46); HEMOGLOBIN 11.2 g/dL (12.0-16.0); LYMPHOCYTES # (AUTO) 1.5 K/uL (1.0-4.8); LYMPHOCYTES % (AUTO) 25.5 % (22.0-44.0); MEAN CORPUSCULAR HGB CONC 31.9 G/dL (31.0-37.0); MEAN CORPUSCULAR VOLUME 75 fL (80-100); MONOCYTES # (AUTO) 0.5 K/uL (0.1-1.0); MONOCYTES % (AUTO) 8.4 % (2.0-9.0); NEUTROPHILS # (AUTO) 3.6 K/uL (1.8-7.7); NEUTROPHILS % (AUTO) 63.5 % (40.0-70.0); PLATELET COUNT (AUTO) 399 K/uL (150-450); RED BLOOD CELL COUNT(AUTO) 4.67 MIL/uL (4.00-5.20); RED CELL DISTRIBUTION WIDTH 17.2 % (11.5-14.5)
[2018-09-09 08:34] VITALS: BP 120/82
[2018-09-09] MEDS: BuPROPion HCL XL 150 MG ER TABLET PO SCH (08:38)
[2018-09-09 08:48] LABS: HEMOGLOBIN A1C 5.9 % (4.5-6.2)
[2018-09-09 09:03] LABS: ALANINE AMINOTRANSFERASE 25 U/L (12-78); ALBUMIN 3.2 g/dL (3.4-5.0); ALKALINE PHOSPHATASE 86 U/L (46-116); ANION GAP 8 mmol/L (8-16); ASPARTATE AMINOTRANSFERASE 16 U/L (15-37); BILIRUBIN,TOTAL 0.6 mg/dL (0.1-1.0); CARBON DIOXIDE 28 mmol/L (22-29); CHLORIDE 104 mmol/L (98-107); CHOL/HDL RATIO 4.1 (3.9-5.7); CHOLESTEROL 177 mg/dL (131-200); CREATININE 1.01 mg/dL (0.60-1.30); GLOMERULAR FILTR. RATE CALC > 60 mL/min (>60); GLUCOSE,RANDOM 74 mg/dL (70-110); HDL CHOLESTEROL 43 mg/dL (40-60); LDL CHOL (CALC.) 125 mg/dL (0-130); POTASSIUM 4.2 mmol/L (3.5-5.1); SODIUM SERUM 140 mmol/L (136-145); THYROID STIMULATING HORMONE 1.39 uIU/mL (0.36-3.74); TOTAL PROTEIN, SERUM 6.9 g/dL (6.4-8.2); TRIGLYCERIDES 47 mg/dL (15-150); UREA NITROGEN, BLOOD 13 mg/dL (7-18)
[2018-09-09] MEDS: IBUPROFEN 400 MG TABLET PO PRN (09:25)
[2018-09-09 16:10] VITALS: BP 116/77
[2018-09-09] MEDS: NYSTATIN 30 GM CREAM TP SCH (17:06)
[2018-09-09] MEDS: ChlorproMAZINE HCL 50 MG TABLET PO SCH (20:16)
[2018-09-10 00:07] VITALS: BP 112/72
[2018-09-10 08:09] VITALS: BP 128/73
[2018-09-10] MEDS: BuPROPion HCL XL 150 MG ER TABLET PO SCH (08:09)
[2018-09-10] MEDS: LORazepam 2 MG TABLET PO PRN ×3 (08:09→20:07)
[2018-09-10] MEDS: NYSTATIN 30 GM CREAM TP SCH ×2 (08:10→16:43)
[2018-09-10 16:09] VITALS: BP 127/76
[2018-09-10] MEDS: ChlorproMAZINE HCL 50 MG TABLET PO SCH (20:33)
[2018-09-11 01:05] VITALS: BP 125/90
[2018-09-11 08:26] VITALS: BP 129/90
[2018-09-11] MEDS: BuPROPion HCL XL 150 MG ER TABLET PO SCH (08:31)
[2018-09-11] MEDS ORDERED: PALIPERIDONE PALMITATE 156 MG/ML SYRINGE IM ONE (09:00)
[2018-09-11] MEDS: NYSTATIN 30 GM CREAM TP SCH ×2 (09:04→17:23)
[2018-09-11 18:13] VITALS: BP 109/57
[2018-09-11] MEDS: ZOLPIDEM TARTRATE 10 MG TABLET PO PRN (20:07)
[2018-09-11] MEDS: ChlorproMAZINE HCL 50 MG TABLET PO SCH (20:07)
[2018-09-11] MEDS ORDERED: HALOPERIDOL LACTATE 5 MG/ML VIAL IM ONE (20:30)
[2018-09-11] MEDS ORDERED: DiphenhydrAMINE HCL 50 MG/ML VIAL IM ONE (20:30)
[2018-09-11] MEDS ORDERED: LORazepam 2 MG/ML VIAL IM ONE (20:30)
[2018-09-11 21:26] VITALS: BP 110/72
[2018-09-12] MEDS: BuPROPion HCL XL 150 MG ER TABLET PO SCH (08:09)
[2018-09-12] MEDS: LORazepam 2 MG TABLET PO PRN ×3 (08:09→21:51)
[2018-09-12] MEDS: NYSTATIN 30 GM CREAM TP SCH ×2 (08:10→17:00)
[2018-09-12 08:22] VITALS: BP 130/91
[2018-09-12] MEDS: HALOPERIDOL 5 MG TABLET PO PRN ×3 (08:46→21:51)
[2018-09-12 16:18] VITALS: BP 119/95
[2018-09-12] MEDS: ChlorproMAZINE HCL 50 MG TABLET PO SCH (20:10)
[2018-09-13 06:57] VITALS: BP 112/68
[2018-09-13 08:07] VITALS: BP 128/82
[2018-09-13] MEDS: BuPROPion HCL XL 150 MG ER TABLET PO SCH ×2 (09:00→10:46)
[2018-09-13] MEDS: NYSTATIN 30 GM CREAM TP SCH ×2 (09:00→16:52)
[2018-09-13] MEDS: HALOPERIDOL 5 MG TABLET PO PRN (10:46)
[2018-09-13] MEDS: LORazepam 2 MG TABLET PO PRN ×2 (10:46→20:13)
[2018-09-13] MEDS ORDERED: HALOPERIDOL LACTATE 5 MG/ML VIAL ONE (13:37)
[2018-09-13] MEDS ORDERED: DiphenhydrAMINE HCL 50 MG/ML VIAL ONE (13:37)
[2018-09-13] MEDS ORDERED: LORazepam 2 MG/ML VIAL ONE (13:37)
[2018-09-13] MEDS ORDERED: DiphenhydrAMINE HCL 50 MG/ML VIAL IM ONE (13:45)
[2018-09-13] MEDS ORDERED: HALOPERIDOL LACTATE 5 MG/ML VIAL IM ONE (13:45)
[2018-09-13] MEDS ORDERED: LORazepam 2 MG/ML VIAL IM ONE (13:45)
[2018-09-13 17:05] VITALS: BP 113/67
[2018-09-13] MEDS: ChlorproMAZINE HCL 50 MG TABLET PO SCH (20:03)
[2018-09-14 08:23] VITALS: BP 138/79
[2018-09-14] MEDS: BuPROPion HCL XL 150 MG ER TABLET PO SCH (09:04)
[2018-09-14] MEDS: NYSTATIN 30 GM CREAM TP SCH ×2 (09:04→17:00)
[2018-09-14] MEDS: LORazepam 2 MG TABLET PO PRN (09:29)
[2018-09-14 16:23] VITALS: BP 100/80
[2018-09-14] MEDS: ChlorproMAZINE HCL 50 MG TABLET PO SCH (20:14)
[2018-09-15 05:57] VITALS: BP 136/98
[2018-09-15] MEDS: BuPROPion HCL XL 150 MG ER TABLET PO SCH (08:15)
[2018-09-15] MEDS: NYSTATIN 30 GM CREAM TP SCH ×2 (08:16→16:39)
[2018-09-15 08:24] VITALS: BP 147/99
[2018-09-15] MEDS: LORazepam 2 MG TABLET PO PRN (12:48)
[2018-09-15 16:47] VITALS: BP 136/62
[2018-09-15] MEDS: ChlorproMAZINE HCL 50 MG TABLET PO SCH (20:03)
[2018-09-16] MEDS: NYSTATIN 30 GM CREAM TP SCH ×2 (08:18→16:39)
[2018-09-16] MEDS: BuPROPion HCL XL 150 MG ER TABLET PO SCH (08:18)
[2018-09-16 08:19] VITALS: BP 119/79
[2018-09-16] MEDS: LORazepam 2 MG TABLET PO PRN ×2 (08:59→17:36)
[2018-09-16] MEDS: HALOPERIDOL 5 MG TABLET PO PRN ×2 (09:02→17:36)
[2018-09-16 17:20] VITALS: BP 136/95
[2018-09-16] MEDS: ZOLPIDEM TARTRATE 10 MG TABLET PO PRN (20:49)
[2018-09-16] MEDS: ChlorproMAZINE HCL 50 MG TABLET PO SCH (20:50)
[2018-09-17] MEDS: HALOPERIDOL 5 MG TABLET PO PRN (00:20)
[2018-09-17] MEDS: LORazepam 2 MG TABLET PO PRN ×2 (00:20→08:18)
[2018-09-17 01:00] VITALS: BP 128/87
[2018-09-17] MEDS: BuPROPion HCL XL 150 MG ER TABLET PO SCH (08:09)
[2018-09-17] MEDS: NYSTATIN 30 GM CREAM TP SCH ×2 (08:18→16:59)
[2018-09-17 16:24] VITALS: BP 129/72
[2018-09-17] MEDS ORDERED: DiphenhydrAMINE HCL 50 MG/ML VIAL ONE (17:11)
[2018-09-17] MEDS ORDERED: HALOPERIDOL LACTATE 5 MG/ML VIAL ONE (17:11)
[2018-09-17] MEDS ORDERED: LORazepam 2 MG/ML VIAL ONE (17:11)
[2018-09-17] MEDS ORDERED: LORazepam 2 MG/ML VIAL IM ONE (17:15)
[2018-09-17] MEDS ORDERED: DiphenhydrAMINE HCL 50 MG/ML VIAL IM ONE (17:15)
[2018-09-17] MEDS ORDERED: HALOPERIDOL LACTATE 5 MG/ML VIAL IM ONE (17:15)
[2018-09-17] MEDS: ChlorproMAZINE HCL 50 MG TABLET PO SCH (21:00)
[2018-09-18 07:13] VITALS: BP 135/86
[2018-09-18] MEDS: BuPROPion HCL XL 150 MG ER TABLET PO SCH (08:03)
[2018-09-18] MEDS: NYSTATIN 30 GM CREAM TP SCH ×2 (08:08→16:27)
[2018-09-18 08:24] VITALS: BP 123/87
[2018-09-18] MEDS: ChlorproMAZINE HCL 50 MG TABLET PO SCH ×2 (12:30→16:27)
[2018-09-18 16:10] VITALS: BP 121/91
[2018-09-18] MEDS: ZOLPIDEM TARTRATE 10 MG TABLET PO PRN (22:35)
[2018-09-19 06:36] VITALS: BP 147/88
[2018-09-19] MEDS: ChlorproMAZINE HCL 50 MG TABLET PO SCH ×3 (08:25→17:00)
[2018-09-19] MEDS: BuPROPion HCL XL 150 MG ER TABLET PO SCH (08:25)
[2018-09-19] MEDS: NYSTATIN 30 GM CREAM TP SCH ×2 (08:26→18:10)
[2018-09-19 08:39] VITALS: BP 128/77
[2018-09-19] MEDS: LORazepam 2 MG TABLET PO PRN (09:30)
[2018-09-19 16:39] VITALS: BP 110/92
[2018-09-20 05:58] VITALS: BP 128/70
[2018-09-20 08:33] VITALS: BP 129/79
[2018-09-20] MEDS: ChlorproMAZINE HCL 50 MG TABLET PO SCH ×5 (09:00→17:10)
[2018-09-20] MEDS: BuPROPion HCL XL 150 MG ER TABLET PO SCH ×2 (09:00→09:17)
[2018-09-20] MEDS: NYSTATIN 30 GM CREAM TP SCH ×3 (09:00→17:10)
[2018-09-20] MEDS: LORazepam 2 MG TABLET PO PRN ×2 (17:10→23:54)
[2018-09-20] MEDS: ZOLPIDEM TARTRATE 10 MG TABLET PO PRN (23:54)
[2018-09-21 03:19] VITALS: BP 134/89
[2018-09-21 08:39] VITALS: BP 134/92
[2018-09-21] MEDS: ChlorproMAZINE HCL 50 MG TABLET PO SCH ×3 (08:48→17:03)
[2018-09-21] MEDS: BuPROPion HCL XL 150 MG ER TABLET PO SCH (08:48)
[2018-09-21] MEDS: NYSTATIN 30 GM CREAM TP SCH ×2 (08:49→17:00)
[2018-09-21] MEDS: LORazepam 2 MG TABLET PO PRN ×2 (12:23→17:03)
[2018-09-21 16:24] VITALS: BP 138/98
[2018-09-21 17:03] VITALS: BP 118/72
[2018-09-21] MEDS: IBUPROFEN 400 MG TABLET PO PRN (17:03)
[2018-09-21] MEDS ORDERED: LORazepam 2 MG/ML VIAL ONE (17:51)
[2018-09-21] MEDS ORDERED: DiphenhydrAMINE HCL 50 MG/ML VIAL ONE (17:51)
[2018-09-21] MEDS ORDERED: HALOPERIDOL LACTATE 5 MG/ML VIAL ONE (17:51)
[2018-09-21] MEDS ORDERED: LORazepam 2 MG/ML VIAL IM ONE (18:00)
[2018-09-21] MEDS ORDERED: DiphenhydrAMINE HCL 50 MG/ML VIAL IM ONE (18:00)
[2018-09-21] MEDS ORDERED: HALOPERIDOL LACTATE 5 MG/ML VIAL IM ONE (18:00)
[2018-09-21] MEDS: PRAZOSIN HCL 1 MG CAPSULE PO SCH (20:35)
[2018-09-22 08:37] VITALS: BP 100/68
[2018-09-22] MEDS: ChlorproMAZINE HCL 50 MG TABLET PO SCH ×5 (08:52→17:00)
[2018-09-22] MEDS: NYSTATIN 30 GM CREAM TP SCH ×3 (08:53→17:54)
[2018-09-22] MEDS: BuPROPion HCL XL 150 MG ER TABLET PO SCH ×2 (08:53→09:00)
[2018-09-22 16:21] VITALS: BP 130/92
[2018-09-22] MEDS: LORazepam 2 MG TABLET PO PRN (18:57)
[2018-09-22] MEDS: PRAZOSIN HCL 1 MG CAPSULE PO SCH (21:00)
[2018-09-23 08:44] VITALS: BP 122/71
[2018-09-23] MEDS: BuPROPion HCL XL 150 MG ER TABLET PO SCH (08:54)
[2018-09-23] MEDS: LORazepam 2 MG TABLET PO PRN ×2 (08:59→15:06)
[2018-09-23] MEDS: NYSTATIN 30 GM CREAM TP SCH ×2 (09:00→16:57)
[2018-09-23] MEDS: ChlorproMAZINE HCL 50 MG TABLET PO SCH ×3 (09:00→16:53)
[2018-09-23 16:00] VITALS: BP 123/87
[2018-09-23 20:30] VITALS: BP 111/68
[2018-09-23] MEDS: PRAZOSIN HCL 1 MG CAPSULE PO SCH (20:33)
[2018-09-23] MEDS: ZOLPIDEM TARTRATE 10 MG TABLET PO PRN (21:20)
[2018-09-24 02:11] VITALS: BP 119/89
[2018-09-24] MEDS: HALOPERIDOL 5 MG TABLET PO PRN ×2 (02:18→17:01)
[2018-09-24] MEDS: LORazepam 2 MG TABLET PO PRN ×4 (02:18→20:46)
[2018-09-24 08:13] VITALS: BP 105/72
[2018-09-24] MEDS: BuPROPion HCL XL 150 MG ER TABLET PO SCH (08:51)
[2018-09-24] MEDS: ChlorproMAZINE HCL 50 MG TABLET PO SCH ×3 (08:51→17:01)
[2018-09-24] MEDS: NYSTATIN 30 GM CREAM TP SCH ×2 (09:00→17:01)
[2018-09-24 16:31] VITALS: BP 138/91
[2018-09-24] MEDS: PRAZOSIN HCL 1 MG CAPSULE PO SCH (20:46)
[2018-09-24] MEDS: ZOLPIDEM TARTRATE 10 MG TABLET PO PRN (20:46)
[2018-09-25 06:26] VITALS: BP 122/89
[2018-09-25] MEDS: ChlorproMAZINE HCL 50 MG TABLET PO SCH ×2 (08:30→12:05)
[2018-09-25] MEDS: BuPROPion HCL XL 150 MG ER TABLET PO SCH (08:30)
[2018-09-25] MEDS: NYSTATIN 30 GM CREAM TP SCH (08:40)
[2018-09-25] MEDS ORDERED: NYST15CR TP (09:50)
[2018-09-25] MEDS ORDERED: CHLO25 PO (09:50)
[2018-09-25] MEDS ORDERED: BUPR-93 PO (09:50)
[2018-09-25] MEDS ORDERED: PRAZ1 PO (09:50)
[2018-09-25] MEDS ORDERED: NYST30CR9 TP (09:50)
[2018-09-25 10:48] LABS: GLUCOMETER DEV NAME(LOC) BV2S.; GLUCOSE,POINT OF CARE 97 MG/DL (70-110)
== END 2018-09-25 13:40 | disposition home or self-care (01) | DRG 885 ==
LOC: EMS 04:41 → B3A 09:41 → B2X 10:39 → B2S 13:36
PROVIDERS: ADMIT Psychiatry & Neurology Psychiatry; ATTEND Psychiatry & Neurology Psychiatry
DX: F25.0 Schizoaffective disorder, bipolar type (principal); R45.851 Suicidal ideations; F41.9 Anxiety disorder, unspecified; Z28.21 Immunization not carried out because of patient refusal; B36.9 Superficial mycosis, unspecified; D64.9 Anemia, unspecified; E66.9 Obesity, unspecified; E78.5 Hyperlipidemia, unspecified; F41.0 Panic disorder [episodic paroxysmal anxiety]; F42.9 Obsessive-compulsive disorder, unspecified; K59.00 Constipation, unspecified; R45.850 Homicidal ideations; Z59.0 Homelessness; Z78.1 Physical restraint status
CPT/HCPCS: 83036; 84443; 96372; G0480; J1200; J1630; J2060

== ENCOUNTER 2018-09-25 19:23 | Emergency (ER) | payer MEDICAID, MEDICARE ==
[~2018-09-25] VITALS: Ht 165.1 cm; Wt 130.9 kg
[~2018-09-25 19:23] MED LIST changes: +CHLO25 PO; -CHLO50 PO; -FERR-89 PO; +NYST15CR TP; +NYST30CR9 TP; +PALI234D IM; +PRAZ1 PO; -QUET200T PO
[2018-09-25 21:02] LABS: BASOPHILS % (AUTO) 0.5 % (0.0-2.0); EOSINOPHILS % (AUTO) 7.4 % (1.0-6.0); HEMATOCRIT 36.4 % (36-46); HEMOGLOBIN 11.4 g/dL (12.0-16.0); LYMPHOCYTES # (AUTO) 1.7 K/uL (1.0-4.8); LYMPHOCYTES % (AUTO) 25.2 % (22.0-44.0); MEAN CORPUSCULAR HGB CONC 31.3 G/dL (31.0-37.0); MEAN CORPUSCULAR VOLUME 77 fL (80-100); MONOCYTES # (AUTO) 0.5 K/uL (0.1-1.0); NEUTROPHILS % (AUTO) 58.9 % (40.0-70.0); PLATELET COUNT (AUTO) 450 K/uL (150-450); RED BLOOD CELL COUNT(AUTO) 4.74 MIL/uL (4.00-5.20)
[2018-09-25 21:15] LABS: ANION GAP 8 mmol/L (8-16); CALCIUM, TOTAL 9.4 mg/dL (8.8-10.5); CARBON DIOXIDE 27 mmol/L (22-29); CHLORIDE 100 mmol/L (98-107); CREATININE 1.05 mg/dL (0.60-1.30); GLOMERULAR FILTR. RATE CALC > 60 mL/min (>60); GLUCOSE,RANDOM 89 mg/dL (70-110); POTASSIUM 4.2 mmol/L (3.5-5.1); SODIUM SERUM 135 mmol/L (136-145); UREA NITROGEN, BLOOD 15 mg/dL (7-18)
[2018-09-25 21:26] LABS: ALANINE AMINOTRANSFERASE 29 U/L (12-78); ALBUMIN 3.3 g/dL (3.4-5.0); ALKALINE PHOSPHATASE 84 U/L (46-116); ASPARTATE AMINOTRANSFERASE 16 U/L (15-37); BILIRUBIN,TOTAL 0.3 mg/dL (0.1-1.0); HCG,QUANTITATIVE 1 mIU/mL (0-6); TOTAL PROTEIN, SERUM 7.6 g/dL (6.4-8.2)
[2018-09-25 22:08] LABS: AMPHET/METH SCREEN,URINE NEGATIVE (NEGATIVE); BARBITURATE SCREEN, URINE NEGATIVE (NEGATIVE); BENZODIAZEPINES SCREEN,URINE NEGATIVE (NEGATIVE); CANNABINOID SCREEN,URINE NEGATIVE (NEGATIVE); COCAINE SCREEN,URINE NEGATIVE (NEGATIVE); METHADONE SCREEN, URINE NEGATIVE (NEGATIVE); OPIATE SCREEN,URINE NEGATIVE (NEGATIVE); PHENCYCLIDINE SCREEN,URINE NEGATIVE (NEGATIVE)
[2018-09-25] MEDS ORDERED: DiphenhydrAMINE HCL 50 MG/ML VIAL IM ONE (23:15)
[2018-09-25] MEDS ORDERED: HALOPERIDOL LACTATE 5 MG/ML VIAL IM ONE (23:15)
[2018-09-25] MEDS ORDERED: LORazepam 2 MG/ML VIAL IM ONE (23:15)
[2018-09-25 23:22] VITALS: BP 124/88
== END 2018-09-25 23:30 | disposition home or self-care (01) ==
LOC: EMS 19:25
DX: F41.9 Anxiety disorder, unspecified (principal); F31.9 Bipolar disorder, unspecified; F20.9 Schizophrenia, unspecified; Z88.8 Allergy status to other drugs, medicaments and biological substances; Z79.899 Other long term (current) drug therapy
CPT/HCPCS: 36415; 80053; 80307; 84702; 85025; 96372; 99284; G0480; J1200; J1630; J2060

== ENCOUNTER 2018-10-01 03:56 | Emergency (ER) | payer MEDICARE ==
[~2018-10-01] VITALS: Ht 165.1 cm; Wt 130.9 kg
[~2018-10-01 03:56] MED LIST changes: -NYST30CR9 TP; -PALI234D IM
[2018-10-01 04:43] LABS: BASOPHILS % (AUTO) 0.6 % (0.0-2.0); EOSINOPHILS % (AUTO) 7.9 % (1.0-6.0); HEMATOCRIT 36.2 % (36-46); HEMOGLOBIN 11.5 g/dL (12.0-16.0); LYMPHOCYTES # (AUTO) 1.2 K/uL (1.0-4.8); LYMPHOCYTES % (AUTO) 21.7 % (22.0-44.0); MEAN CORPUSCULAR HEMOGLOBIN 24.1 pg (26.0-34.0); MEAN CORPUSCULAR HGB CONC 31.7 G/dL (31.0-37.0); MEAN CORPUSCULAR VOLUME 76 fL (80-100); MONOCYTES # (AUTO) 0.4 K/uL (0.1-1.0); MONOCYTES % (AUTO) 7.2 % (2.0-9.0); NEUTROPHILS # (AUTO) 3.6 K/uL (1.8-7.7); NEUTROPHILS % (AUTO) 62.6 % (40.0-70.0); PLATELET COUNT (AUTO) 437 K/uL (150-450); RED BLOOD CELL COUNT(AUTO) 4.77 MIL/uL (4.00-5.20); RED CELL DISTRIBUTION WIDTH 17.3 % (11.5-14.5)
[2018-10-01 04:51] LABS: ANION GAP 7 mmol/L (8-16); CALCIUM, TOTAL 9.6 mg/dL (8.8-10.5); CARBON DIOXIDE 28 mmol/L (22-29); CHLORIDE 104 mmol/L (98-107); CREATININE 1.03 mg/dL (0.60-1.30); GLOMERULAR FILTR. RATE CALC > 60 mL/min (>60); GLUCOSE,RANDOM 97 mg/dL (70-110); POTASSIUM 3.6 mmol/L (3.5-5.1); SODIUM SERUM 139 mmol/L (136-145); UREA NITROGEN, BLOOD 11 mg/dL (7-18)
[2018-10-01 05:02] LABS: ALANINE AMINOTRANSFERASE 31 U/L (12-78); ALBUMIN 3.3 g/dL (3.4-5.0); ALKALINE PHOSPHATASE 81 U/L (46-116); ASPARTATE AMINOTRANSFERASE 15 U/L (15-37); BILIRUBIN,TOTAL 0.6 mg/dL (0.1-1.0); HCG,QUANTITATIVE 1 mIU/mL (0-6); TOTAL PROTEIN, SERUM 7.7 g/dL (6.4-8.2)
[2018-10-01] MEDS ORDERED: LORazepam 1 MG TABLET PO ONE (08:45)
[2018-10-01 08:48] LABS: AMPHET/METH SCREEN,URINE NEGATIVE (NEGATIVE); BARBITURATE SCREEN, URINE NEGATIVE (NEGATIVE); BENZODIAZEPINES SCREEN,URINE NEGATIVE (NEGATIVE); CANNABINOID SCREEN,URINE NEGATIVE (NEGATIVE); COCAINE SCREEN,URINE NEGATIVE (NEGATIVE); METHADONE SCREEN, URINE NEGATIVE (NEGATIVE); OPIATE SCREEN,URINE NEGATIVE (NEGATIVE)
[2018-10-01 08:49] LABS: PHENCYCLIDINE SCREEN,URINE NEGATIVE (NEGATIVE)
[2018-10-01 15:14] VITALS: BP 131/88
== END 2018-10-01 15:55 | disposition home or self-care (01) ==
LOC: EMS 03:58
DX: F32.9 Major depressive disorder, single episode, unspecified (principal); R44.0 Auditory hallucinations; F41.9 Anxiety disorder, unspecified; Z88.8 Allergy status to other drugs, medicaments and biological substances; Z79.899 Other long term (current) drug therapy
CPT/HCPCS: 36415; 80053; 80307; 84702; 85025; 93005; 99285; G0480

== ENCOUNTER 2018-10-07 02:40 | Emergency (ER) | payer MEDICARE ==
[~2018-10-07] VITALS: Ht 167.6 cm; Wt 127.3 kg
[2018-10-07 08:07] LABS: BASOPHILS % (AUTO) 0.8 % (0.0-2.0); EOSINOPHILS % (AUTO) 1.7 % (1.0-6.0); HEMATOCRIT 35.6 % (36-46); HEMOGLOBIN 11.2 g/dL (12.0-16.0); LYMPHOCYTES # (AUTO) 1.6 K/uL (1.0-4.8); LYMPHOCYTES % (AUTO) 23.3 % (22.0-44.0); MEAN CORPUSCULAR HEMOGLOBIN 24.1 pg (26.0-34.0); MEAN CORPUSCULAR HGB CONC 31.4 G/dL (31.0-37.0); MEAN CORPUSCULAR VOLUME 77 fL (80-100); MONOCYTES # (AUTO) 0.6 K/uL (0.1-1.0); MONOCYTES % (AUTO) 8.5 % (2.0-9.0); NEUTROPHILS # (AUTO) 4.6 K/uL (1.8-7.7); NEUTROPHILS % (AUTO) 65.7 % (40.0-70.0); PLATELET COUNT (AUTO) 419 K/uL (150-450); RED BLOOD CELL COUNT(AUTO) 4.64 MIL/uL (4.00-5.20); RED CELL DISTRIBUTION WIDTH 17.3 % (11.5-14.5)
[2018-10-07 08:36] LABS: ANION GAP 12 mmol/L (8-16); CALCIUM, TOTAL 9.3 mg/dL (8.8-10.5); CARBON DIOXIDE 25 mmol/L (22-29); CHLORIDE 102 mmol/L (98-107); GLOMERULAR FILTR. RATE CALC > 60 mL/min (>60); GLUCOSE,RANDOM 96 mg/dL (70-110); POTASSIUM 3.6 mmol/L (3.5-5.1); SODIUM SERUM 139 mmol/L (136-145); UREA NITROGEN, BLOOD 16 mg/dL (7-18)
[2018-10-07 08:53] LABS: ALANINE AMINOTRANSFERASE 25 U/L (12-78); ALBUMIN 3.2 g/dL (3.4-5.0); ALKALINE PHOSPHATASE 73 U/L (46-116); ASPARTATE AMINOTRANSFERASE 15 U/L (15-37); BILIRUBIN,TOTAL 0.5 mg/dL (0.1-1.0); HCG,QUANTITATIVE 1 mIU/mL (0-6); TOTAL PROTEIN, SERUM 7.4 g/dL (6.4-8.2)
[2018-10-07 09:04] VITALS: BP 118/72
[2018-10-07] MEDS ORDERED: HALOPERIDOL 5 MG TABLET PO ONE (10:00)
== END 2018-10-07 10:36 | disposition home or self-care (01) ==
LOC: EMS 02:42
DX: F41.9 Anxiety disorder, unspecified (principal); F20.9 Schizophrenia, unspecified; F31.9 Bipolar disorder, unspecified; Z88.8 Allergy status to other drugs, medicaments and biological substances
CPT/HCPCS: 36415; 80053; 84702; 85025; 99284; G0480